=== PATIENT | male | born 1970 | race African-American/Black ===

== ENCOUNTER → 2016-10-22 | Outpatient (CLI) | payer OTHER ==
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
== END | disposition home or self-care (01) ==
LOC: CRAD 11:48
DX: M54.5 Low back pain (principal); M54.6 Pain in thoracic spine; M25.78 Osteophyte, vertebrae
CPT/HCPCS: 72070; 72110